=== PATIENT | female | born 1975 | race Caucasian/White ===

== ENCOUNTER 2017-04-02 08:52 | Emergency (ER) | payer MEDICAID ==
[~2017-04-02 08:52] MED LIST: ABILIFY20 M1 PO; ABILIFY5 MG PO; LAMICTAL200 M2 PO; LAMICTAL25 MG PO; NUVIGIL250 M1 PO; PERCOCET 5/3251 TAB PO; PROAIR HFA8.5 GM IH; PROVENTIL HFA6.7 G1 IH; SYNTHROID88 MCG PO; ZOLOFT50 MG PO
[2017-07-23] MEDS ORDERED: VITAMIN D250000 UNI1 PO (21:53)
[2017-07-23] MEDS ORDERED: MIRTAZAPINE30 M2 PO (21:53)
[2017-07-23] MEDS ORDERED: TESSALON PERLE100 M1 PO (22:41)
[2017-07-25] MEDS ORDERED: ZYRTEC10 M7 PO (21:17)
[2017-07-25] MEDS ORDERED: GUAIFENESIN-CODE5 M1 PO (21:46)
[2017-07-25] MEDS ORDERED: ZITHROMAX250 M1 PO (21:46)
== END 2017-04-02 09:55 ==
LOC: EDMED 08:52
DX: L76.34 Postprocedural seroma of skin and subcutaneous tissue following other procedure (principal); Z87.442 Personal history of urinary calculi; Z90.710 Acquired absence of both cervix and uterus; Z98.890 Other specified postprocedural states; F17.200 Nicotine dependence, unspecified, uncomplicated